=== PATIENT | male | born 1965 | race Two or more races ===

== ENCOUNTER 2018-03-09 09:33 | Emergency (ER) | payer MEDICARE, MEDICAID ==
[~2018-03-09] VITALS: Ht 185.4 cm; Wt 86.2 kg
[2018-03-09 13:42] LABS: Basophils # (auto) 0.1 uL; Basophils % (auto) 1.2 % (0.0-2.0); Eosinophils # (auto) 0.4 uL; Eosinophils % (auto) 4.6 % (0.0-7.0); Hematocrit 39.8 % (41.0-53.0); Hemoglobin 13.2 g/dL (13.5-17.5); Lymphocytes # (auto) 1.4 uL; Mean Corpuscular Hemoglobin 29.9 pg (28.0-32.0); Mean Corpuscular Hgb Conc. 33.2 g/dL (32.0-36.0); Mean Corpuscular Volume 90.1 fL (80.0-100.0); Monocytes # (auto) 0.4 uL; Neutrophils % (auto) 72.2 % (37.0-80.0); Nucleated Red Blood Cells % 0.1 %; Platelet Count (auto) 447 10^3/uL (140-450); Red Blood Cells 4.42 10^6/uL (4.5-5.90); White Blood Cell 8.4 10^3/uL (4.4-10.8)
[2018-03-09 13:54] LABS: INR 1.17 (0.9-1.15); Partial Thromboplastin Time 28.5 sec (23.78-33.04); Prothrombin Time 12.4 sec (9.27-12.13)
[2018-03-09 14:01] LABS: Albumin 2.2 g/dL (3.4-5.0); Calcium 8.6 mg/dL (8.5-10.1); Potassium 4.2 mmol/L (3.5-5.1)
[2018-03-09 14:10] LABS: BUN/Creatinine Ratio 13.6; Bilirubin, Total 0.4 mg/dL (0.2-1.0); Total Protein 7.8 g/dL (6.4-8.2)
[2018-03-09 18:16] VITALS: BP 134/99
== END 2018-03-09 18:40 | disposition home or self-care (01) ==
LOC: ER 09:45
DX: R07.89 Other chest pain (principal); E78.5 Hyperlipidemia, unspecified; I10 Essential (primary) hypertension; E11.22 Type 2 diabetes mellitus with diabetic chronic kidney disease; I12.9 Hypertensive chronic kidney disease with stage 1 through stage 4 chronic kidney disease, or unspecified chronic kidney disease; N18.9 Chronic kidney disease, unspecified; F17.210 Nicotine dependence, cigarettes, uncomplicated; Z86.73 Personal history of transient ischemic attack (TIA), and cerebral infarction without residual deficits; Z90.49 Acquired absence of other specified parts of digestive tract
CPT/HCPCS: 36415; 71045; 80053; 82962; 83605; 84484; 85025; 85610; 85730; 87040; 93005; 94761

== ENCOUNTER → 2018-10-03 | Outpatient (CLI) | payer MEDICARE, MEDICAID ==
[~2018-10-03] MED LIST: AMLO5TAB15; ATOR40TA52; CEPH-37 PO; METF500T5; PANT40T
[2018-10-03 10:51] LABS: Basophils # (auto) 0.1 uL; Basophils % (auto) 1.3 % (0.0-2.0); Eosinophils # (auto) 0.4 uL; Eosinophils % (auto) 4.3 % (0.0-7.0); Hematocrit 32.4 % (41.0-53.0); Hemoglobin 10.8 g/dL (13.5-17.5); Lymphocytes # (auto) 1.4 uL; Lymphocytes % (auto) 15.9 % (10.0-50.0); Mean Corpuscular Hemoglobin 30.3 pg (28.0-32.0); Mean Corpuscular Hgb Conc. 33.3 g/dL (32.0-36.0); Mean Corpuscular Volume 90.8 fL (80.0-100.0); Monocytes # (auto) 0.6 uL; Monocytes % (auto) 7.5 % (0.0-12.0); Neutrophils # (auto) 6.1 uL; Nucleated Red Blood Cells % 0.1 %; Platelet Count (auto) 406 10^3/uL (140-450); Red Blood Cells 3.57 10^6/uL (4.5-5.90); Red Cell Distribution Width 14.1 % (11.8-14.3); White Blood Cell 8.5 10^3/uL (4.4-10.8)
[2018-10-03 12:42] LABS: Calcium 8.6 mg/dL (8.5-10.1); Potassium 4.2 mmol/L (3.5-5.1)
[2018-10-03 12:52] LABS: BUN/Creatinine Ratio 11.7; Bilirubin, Total 0.1 mg/dL (0.2-1.0); Total Protein 6.5 g/dL (6.4-8.2)
== END | disposition home or self-care (01) ==
LOC: LAB 10:32
PROVIDERS: ATTEND Internal Medicine Nephrology
DX: E11.22 Type 2 diabetes mellitus with diabetic chronic kidney disease (principal); I12.9 Hypertensive chronic kidney disease with stage 1 through stage 4 chronic kidney disease, or unspecified chronic kidney disease; N18.9 Chronic kidney disease, unspecified
CPT/HCPCS: 36415; 80053; 80061; 85025

== ENCOUNTER 2018-10-08 13:42 | Inpatient (IN) | payer MEDICARE, MEDICAID ==
[~2018-10-08] VITALS: Ht 185.4 cm; Wt 77.5 kg
[~2018-10-08 13:42] MED LIST changes: -AMLO5TAB15; -ATOR40TA52; -METF500T5; -PANT40T
[2018-10-08 14:34] LABS: Basophils # (auto) 0.1 uL; Basophils % (auto) 1.1 % (0.0-2.0); Eosinophils # (auto) 0.5 uL; Eosinophils % (auto) 4.5 % (0.0-7.0); Hematocrit 33.6 % (41.0-53.0); Hemoglobin 10.8 g/dL (13.5-17.5); Lymphocytes # (auto) 1.8 uL; Lymphocytes % (auto) 14.5 % (10.0-50.0); Mean Corpuscular Hemoglobin 29.8 pg (28.0-32.0); Mean Corpuscular Hgb Conc. 32.2 g/dL (32.0-36.0); Mean Corpuscular Volume 92.4 fL (80.0-100.0); Monocytes # (auto) 0.7 uL; Monocytes % (auto) 5.6 % (0.0-12.0); Neutrophils # (auto) 9.2 uL; Neutrophils % (auto) 74.3 % (37.0-80.0); Platelet Count (auto) 451 10^3/uL (140-450); Red Blood Cells 3.64 10^6/uL (4.5-5.90); Red Cell Distribution Width 14.2 % (11.8-14.3); White Blood Cell 12.3 10^3/uL (4.4-10.8)
[2018-10-08 14:45] LABS: Alanine Aminotransferase 38 U/L (16-61); Albumin 1.9 g/dL (3.4-5.0); Anion Gap 8 (5-15); Aspartate Aminotransferase 24 U/L (15-37); BUN/Creatinine Ratio 12.9; Blood Urea Nitrogen 38 mg/dL (7-18); Calcium 8.1 mg/dL (8.5-10.1); Carbon Dioxide 24 mmol/L (21-32); Chloride 102 mmol/L (98-107); GFR African American 29 mL/min; GFR Non-African American 24 mL/min; Potassium 4.4 mmol/L (3.5-5.1); Sodium 134 mmol/L (136-145)
[2018-10-08 14:53] LABS: Alkaline Phosphatase 232 U/L (45-117); Bilirubin, Total 0.2 mg/dL (0.2-1.0); Total Protein 6.7 g/dL (6.4-8.2)
[2018-10-08 14:55] LABS: Glucose 491 mg/dL (74-106)
[2018-10-08] MEDS ORDERED: SODIUM CHLORIDE 0.9% 1,000 ML IV ONE (15:15)
[2018-10-08] MEDS ORDERED: InsuLIN REG 1unit/0.01ml Soln (100units/ml) IV ONE (15:15)
[2018-10-08] MEDS ORDERED: cefTRIAXone 1GM/50ML D5W 50 ML IV ONE (15:15)
[2018-10-08] MEDS ORDERED: HYDROcodone-ACET 5/325MG TAB PO PRN (16:00)
[2018-10-08] MEDS ORDERED: ACETAMINOPHEN 500 MG TAB PO PRN (16:00)
[2018-10-08] MEDS ORDERED: DEXTROSE (50%) 50ML SYRG IV PRN (16:00)
[2018-10-08] MEDS ORDERED: NITROGLYCERIN 0.4 MG SL TAB SL PRN (16:00)
[2018-10-08] MEDS ORDERED: MORPHINE SULF INJ 2 MG/ML SYRINGE 1ML IV PRN (16:00)
[2018-10-08] MEDS: SODIUM CHLORIDE 0.9% 1,000 ML IV SCH (16:24)
[2018-10-08] MEDS: InsuLIN REG 1unit/0.01ml Soln (100units/ml) SC SCH ×2 (16:24→22:20)
[2018-10-08] MEDS: ACCU-CHEK COMFORT CURVE STRIP VI SCH ×2 (16:24→22:20)
[2018-10-08] MEDS: MORPHINE SULF INJ 2 MG/ML SYRINGE 1ML IV PRN ×2 (16:54→21:08)
[2018-10-08] MEDS ORDERED: VANCOMYCIN PER PHARMACY 0 MG IV SCH (17:15)
--- NOTE | 2018-10-08 17:30 | NUR ---
Telemetry admit from WAY[facility] HARPER JR admitted to Telemetry unit. Patient oriented to Margarita Amador, primary RN, unit, room, bed, and unit policies regarding patient care and visiting hours discussed with patient and family. Patient now on continuous telemetry monitoring, tele box #39 and telemetry reading on arrival to unit is SR @ 83 bpm. Bed set to lowest position/locked, bedside rails up x2, call light within reach. Instructed the patient to call for assistance. Patient verbalized understanding. Will continue to monitor Q1hr and PRN.
[2018-10-08 17:47] LABS: Urine Bacteria NONE SEEN /hpf (None Seen); Urine Blood 1+ /uL (Negative); Urine Hyaline Cast FEW /lpf (0 - 2); Urine Specific Gravity 1.014 (1.001-1.035); Urine WBC 3 /hpf (0 - 3)
[2018-10-08] MEDS ORDERED: PIPERACILLIN-TAZOB 3.375GM 100 ML IV SCH (18:00)
[2018-10-08] MEDS ORDERED: VANCOMYCIN 1GM/250ML 250 ML IV ONE (18:00)
[2018-10-08 18:03] LABS: Alcohol, Urine < 3.0 mg/dL (0-5); Amphetamine Screen, Urine POSITIVE (NEGATIVE); Barbiturate Scree,Urine NEGATIVE (NEGATIVE); Benzodiazephine Screen, Urine NEGATIVE (NEGATIVE); Cannabinoid Screen, Urine POSITIVE (NEGATIVE); Cocaine Screen, Urine NEGATIVE (NEGATIVE); Opiate Scree,Urine NEGATIVE (NEGATIVE); Phencyclidine Screen, Urine NEGATIVE (NEGATIVE)
[2018-10-08] MEDS ORDERED: ATOR40TA52 (18:59)
[2018-10-08] MEDS ORDERED: METF500T5 (18:59)
[2018-10-08] MEDS ORDERED: PANT40T (18:59)
[2018-10-08] MEDS ORDERED: AMLO5TAB15 (18:59)
--- NOTE | 2018-10-08 19:02 | NUR ---
ENDORSED CARE TO FRAN NORTON. ENDORSED MRSA SWAB.
--- NOTE | 2018-10-08 20:17 | NUR ---
REPORT RECEIVED FROM DAY RN POC REVIEWED
--- NOTE | 2018-10-08 21:03 | NUR ---
MRSA SWAB SENT PT HAD POSITIVE MRSA LAST MONTH 08/2018, PT PLACED ON CONTACT ISOLATION
[2018-10-08 21:16] VITALS: BP 159/97
[2018-10-09] MEDS: SODIUM CHLORIDE 0.9% 1,000 ML IV SCH ×3 (00:52→17:27)
[2018-10-09] MEDS: InsuLIN REG 1unit/0.01ml Soln (100units/ml) SC SCH ×6 (00:53→20:50)
[2018-10-09] MEDS: ACCU-CHEK COMFORT CURVE STRIP VI SCH ×6 (00:54→20:51)
[2018-10-09] MEDS: MORPHINE SULF INJ 2 MG/ML SYRINGE 1ML IV PRN ×5 (01:14→22:00)
[2018-10-09 05:30] VITALS: BP 149/86
[2018-10-09 05:58] LABS: Basophils # (auto) 0.1 uL; Basophils % (auto) 0.7 % (0.0-2.0); Eosinophils # (auto) 0.8 uL; Eosinophils % (auto) 6.7 % (0.0-7.0); Hematocrit 32.6 % (41.0-53.0); Lymphocytes # (auto) 3.4 uL; Mean Corpuscular Hemoglobin 30.4 pg (28.0-32.0); Mean Corpuscular Hgb Conc. 33.6 g/dL (32.0-36.0); Mean Corpuscular Volume 90.6 fL (80.0-100.0); Monocytes # (auto) 1.1 uL; Monocytes % (auto) 9.1 % (0.0-12.0); Neutrophils # (auto) 6.7 uL; Neutrophils % (auto) 55.5 % (37.0-80.0); Platelet Count (auto) 379 10^3/uL (140-450); Red Cell Distribution Width 14.2 % (11.8-14.3); White Blood Cell 12.1 10^3/uL (4.4-10.8)
[2018-10-09 06:05] LABS: INR 1.27 (0.9-1.15); Partial Thromboplastin Time 29.6 sec (23.64-32.05)
[2018-10-09] MEDS: INSULIN LANTUS (GLARGINE) 1 /0.01ml (100units/ml) SC SCH (06:07)
[2018-10-09 06:12] LABS: Calcium 8.2 mg/dL (8.5-10.1); Potassium 3.8 mmol/L (3.5-5.1)
[2018-10-09 06:16] LABS: BUN/Creatinine Ratio 15.4
--- NOTE | 2018-10-09 07:23 | NUR ---
patient endorsed from pm shift. patient admitted 10/08 for sepsis. patient has apparent facial swelling with sore on cheek
[2018-10-09 08:00] VITALS: BP 112/72
[2018-10-09] MEDS: cefTRIAXone 1GM/50ML D5W 50 ML IV SCH (08:21)
[2018-10-09 09:00] VITALS: BP 153/88
[2018-10-09 13:00] VITALS: BP 127/73
--- NOTE | 2018-10-09 13:18 | NUR ---
Pt requested advance directive which was given to him. Social work explained how to fill out. Pt had no questions.
--- NOTE | 2018-10-09 14:15 | NUR ---
WOUND CARE NOTE: Wound care consult received for upper extremity cellulitis. Patient is a 53 yo males admitted for sepsis. Patient with a history of L BKA, chronic kidney failure, diabetes, high lipids, hypertension, TIA, appy and tonsillectomy. Patient is alert and denies pain. Last Devin score is 19. Patient presents with multiple multiple pustules over surface of right arm and right cheek. Patient states that this is the first sore that he has had on his face. Patient has frequently develop the sores on his arms where he picks at them and drains them. Patient currently with no open draining wound. All sores are closed and/or scabbed over. RECOMMENDATIONS: Nursing to provide basic skin care, cleanse and moisturize skin PRN; continue with antibiotics as order; no need for wound care team at this time.
[2018-10-09 17:00] VITALS: BP 134/78
[2018-10-09] MEDS: VANCOMYCIN 750mg/250ml 250 ML IV SCH (17:38)
[2018-10-09] MEDS ORDERED: VANCOMYCIN 750mg/250ml 250 ML IV SCH (18:00)
--- NOTE | 2018-10-09 18:53 | NUR ---
PATIENT SEEN BY WOUND CARE. NO TREATMENT TO BE RECEIVED UNLESS SORES BECOME OPEN SORES
--- NOTE | 2018-10-09 19:30 | NUR ---
Opening Shift Note Assumed care of patient, awake and alert. No S/S of distress/SOB or pain. IV to left FA infiltrated. Arm tender and inflammed. Discontinuing IV and will start a new one. Scabs on arm and face are not open. Instructed on POC and to call for assist PRN, will continue to monitor for changes Q1hr and PRN.
[2018-10-09 21:00] VITALS: BP 136/80
--- NOTE | 2018-10-09 21:05 | NUR ---
Opening Shift Note Assumed care of patient, awake and alert. No S/S of distress/SOB or pain. Instructed on POC and to call for assist PRN, will continue to monitor for changes Q1hr and PRN. Addendum: 10/11/18 at 0338 by KRISTEL MAE RN RN Actual 10/10/18
--- NOTE | 2018-10-09 22:00 | NUR ---
New IV 22 G started to left upper FA. Infusing fluids per orders. Tolerated well. Requesting pain meds. Will medicate per orders
[2018-10-10] MEDS: ACCU-CHEK COMFORT CURVE STRIP VI SCH ×6 (04:00→20:20)
[2018-10-10 04:30] VITALS: BP 133/81
[2018-10-10] MEDS: InsuLIN REG 1unit/0.01ml Soln (100units/ml) SC SCH ×6 (04:31→20:21)
[2018-10-10] MEDS: INSULIN LANTUS (GLARGINE) 1 /0.01ml (100units/ml) SC SCH (06:14)
[2018-10-10] MEDS: MORPHINE SULF INJ 2 MG/ML SYRINGE 1ML IV PRN ×4 (06:16→20:23)
[2018-10-10] MEDS: SODIUM CHLORIDE 0.9% 1,000 ML IV SCH ×3 (08:47→15:49)
[2018-10-10] MEDS: cefTRIAXone 1GM/50ML D5W 50 ML IV SCH (08:47)
[2018-10-10 09:27] VITALS: BP 118/85
[2018-10-10] MEDS: MUPIROCIN 2% OINT 15gm or 22gm EACHNOSTRI SCH ×2 (10:10→22:58)
[2018-10-10 12:30] VITALS: BP 150/83
[2018-10-10 17:10] VITALS: BP 143/78
[2018-10-10] MEDS: VANCOMYCIN 750mg/250ml 250 ML IV SCH (17:30)
[2018-10-10 23:24] VITALS: BP 125/68
[2018-10-11] MEDS: MORPHINE SULF INJ 2 MG/ML SYRINGE 1ML IV PRN ×3 (00:32→09:27)
[2018-10-11] MEDS: ACCU-CHEK COMFORT CURVE STRIP VI SCH ×3 (00:40→08:00)
[2018-10-11] MEDS: SODIUM CHLORIDE 0.9% 1,000 ML IV SCH ×2 (00:41→08:00)
[2018-10-11] MEDS: InsuLIN REG 1unit/0.01ml Soln (100units/ml) SC SCH ×3 (00:41→08:00)
[2018-10-11 05:29] LABS: Basophils # (auto) 0.1 uL; Basophils % (auto) 0.5 % (0.0-2.0); Eosinophils % (auto) 8.7 % (0.0-7.0); Hemoglobin 9.5 g/dL (13.5-17.5); Lymphocytes # (auto) 2.7 uL; Lymphocytes % (auto) 23.6 % (10.0-50.0); Mean Corpuscular Hgb Conc. 32.5 g/dL (32.0-36.0); Mean Corpuscular Volume 92.1 fL (80.0-100.0); Monocytes # (auto) 1.1 uL; Monocytes % (auto) 9.8 % (0.0-12.0); Neutrophils # (auto) 6.6 uL; Neutrophils % (auto) 57.4 % (37.0-80.0); Nucleated Red Blood Cells % 0.1 %; Platelet Count (auto) 379 10^3/uL (140-450); Red Blood Cells 3.16 10^6/uL (4.5-5.90); Red Cell Distribution Width 14.2 % (11.8-14.3); White Blood Cell 11.5 10^3/uL (4.4-10.8)
[2018-10-11 05:31] VITALS: BP 133/80
[2018-10-11] MEDS: INSULIN LANTUS (GLARGINE) 1 /0.01ml (100units/ml) SC SCH (06:21)
[2018-10-11 09:00] VITALS: BP 139/75
[2018-10-11] MEDS: cefTRIAXone 1GM/50ML D5W 50 ML IV SCH (09:03)
[2018-10-11] MEDS: MUPIROCIN 2% OINT 15gm or 22gm EACHNOSTRI SCH (09:40)
--- NOTE | 2018-10-11 10:23 | NUR ---
Discharge instructions given as ordered. Encourage to follow up with PMD as instructed. All questions and concerns addressed. Patient verbalized understanding. Medication reconciliation form completed and copy given to patient. IV removed with catheter intact, pressure dressing applied . Telemetry unit returned to ICU. Patient taken to vehicle via wheelchair with all personal belongings, accompanied by staff and family member. No distress noted at time of departure.
== END 2018-10-11 10:22 | disposition home or self-care (01) | DRG 871 ==
LOC: ER 13:42 → TELE 13:43 → TELE-CENTR 17:29
PROVIDERS: ADMIT Nurse Practitioner Acute Care; ATTEND Family Medicine
DX: A41.9 Sepsis, unspecified organism (principal); E43 Unspecified severe protein-calorie malnutrition; L03.113 Cellulitis of right upper limb; L03.211 Cellulitis of face; L02.01 Cutaneous abscess of face; N18.4 Chronic kidney disease, stage 4 (severe); E11.22 Type 2 diabetes mellitus with diabetic chronic kidney disease; E11.21 Type 2 diabetes mellitus with diabetic nephropathy; E11.40 Type 2 diabetes mellitus with diabetic neuropathy, unspecified; D63.8 Anemia in other chronic diseases classified elsewhere; I12.9 Hypertensive chronic kidney disease with stage 1 through stage 4 chronic kidney disease, or unspecified chronic kidney disease; E78.00 Pure hypercholesterolemia, unspecified; F15.10 Other stimulant abuse, uncomplicated; Z68.22 Body mass index [BMI] 22.0-22.9, adult; F17.210 Nicotine dependence, cigarettes, uncomplicated; Z79.4 Long term (current) use of insulin; Z82.3 Family history of stroke; Z82.49 Family history of ischemic heart disease and other diseases of the circulatory system; Z83.3 Family history of diabetes mellitus; Z86.73 Personal history of transient ischemic attack (TIA), and cerebral infarction without residual deficits; Z89.512 Acquired absence of left leg below knee; Z89.612 Acquired absence of left leg above knee; Z90.81 Acquired absence of spleen
CPT/HCPCS: 36415; 71045; 80048; 80053; 80202; 80307; 81001; 82565; 82962; 83036; 83605; 83880; 84484; 85025; 85610; 85730; 87040; 87081; 93005; G0378; J0696; J1815

== ENCOUNTER 2018-11-09 20:36 | Inpatient (IN) | payer MEDICARE, MEDICAID ==
[~2018-11-09] VITALS: Ht 185.4 cm; Wt 85.7 kg
[~2018-11-09 20:36] MED LIST changes: +AMLO5TAB15; +ATOR40TA52; +METF-916; +PANT40T
[2018-11-09 22:16] LABS: Urine Bacteria FEW /hpf (None Seen); Urine Blood 1+ /uL (Negative); Urine Mucus FEW (None Seen); Urine Specific Gravity 1.015 (1.001-1.035); Urine WBC 3 /hpf (0 - 3)
[2018-11-10 02:11] LABS: Basophils # (auto) 0.1 uL; Basophils % (auto) 0.9 % (0.0-2.0); Eosinophils # (auto) 0.4 uL; Hemoglobin 11.8 g/dL (13.5-17.5); Lymphocytes # (auto) 2.8 uL; Lymphocytes % (auto) 25.6 % (10.0-50.0); Mean Corpuscular Hemoglobin 29.7 pg (28.0-32.0); Mean Corpuscular Hgb Conc. 32.8 g/dL (32.0-36.0); Mean Corpuscular Volume 90.4 fL (80.0-100.0); Monocytes # (auto) 0.9 uL; Monocytes % (auto) 7.8 % (0.0-12.0); Neutrophils # (auto) 6.8 uL; Neutrophils % (auto) 61.7 % (37.0-80.0); Nucleated Red Blood Cells % 0.2 %; Platelet Count (auto) 362 10^3/uL (140-450); Red Blood Cells 3.98 10^6/uL (4.5-5.90); Red Cell Distribution Width 14.2 % (11.8-14.3)
[2018-11-10 02:24] LABS: INR 1.21 (0.9-1.15); Partial Thromboplastin Time 28.3 sec (23.64-32.05)
[2018-11-10 02:29] LABS: Alanine Aminotransferase 30 U/L (16-61); Albumin 2.3 g/dL (3.4-5.0); Anion Gap 11 (5-15); Aspartate Aminotransferase 13 U/L (15-37); BUN/Creatinine Ratio 19.1; Blood Urea Nitrogen 59 mg/dL (7-18); Calcium 8.3 mg/dL (8.5-10.1); Carbon Dioxide 19 mmol/L (21-32); Chloride 107 mmol/L (98-107); GFR African American 27 mL/min; GFR Non-African American 23 mL/min; Glucose 257 mg/dL (74-106); Magnesium 2.1 mg/dL (1.6-2.6); Potassium 4.3 mmol/L (3.5-5.1); Sodium 137 mmol/L (136-145)
[2018-11-10 02:33] LABS: Alkaline Phosphatase 162 U/L (45-117); Bilirubin, Total < 0.1 mg/dL (0.2-1.0); Total Protein 6.8 g/dL (6.4-8.2)
[2018-11-10] MEDS ORDERED: ONDANSETRON HCL 4 MG/2 ML VIAL IV ONE (07:30)
[2018-11-10] MEDS ORDERED: ASPirin 81 mg TAB PO ONE (07:30)
[2018-11-10] MEDS ORDERED: MORPHINE SULF INJ 2 MG/ML SYRINGE 1ML IV ONE (07:30)
[2018-11-10] MEDS: SODIUM CHLORIDE 0.9% 1,000 ML IV ONE ×2 (09:58→10:06)
[2018-11-10] MEDS ORDERED: MORPHINE SULF INJ 2 MG/ML SYRINGE 1ML IV PRN (10:45)
[2018-11-10] MEDS ORDERED: DEXTROSE (50%) 50ML SYRG IV PRN (10:45)
[2018-11-10] MEDS ORDERED: NITROGLYCERIN 0.4 MG SL TAB SL PRN (10:45)
[2018-11-10] MEDS ORDERED: METOPROLOL TARTRATE 25 MG TAB PO ONE (11:00)
[2018-11-10] MEDS ORDERED: ASPirin-EC 81 mg tab PO ONE (11:00)
[2018-11-10] MEDS ORDERED: cefTRIAXone 1GM/50ML D5W 50 ML IV ONE (11:00)
[2018-11-10] MEDS: ACCU-CHEK COMFORT CURVE STRIP VI SCH ×3 (11:56→20:59)
[2018-11-10] MEDS: InsuLIN REG 1unit/0.01ml Soln (100units/ml) SC SCH ×3 (11:59→21:01)
[2018-11-10] MEDS: CLINDAMYCIN 300MG IV 50 ML IV SCH ×2 (14:04→20:36)
--- NOTE | 2018-11-10 14:20 | NUR ---
Telemetry admit from [facility] admitted to Telemetry unit after SBAR received. Patient oriented to Nikky Becker primary RN, unit, room, bed, and unit policies regarding patient care and visiting hours. Patient now on continuous telemetry monitoring, tele box # 75 and telemetry reading on arrival to unit is SR 60's. Patient placed on bedside oxygen, weighed by bed scale and encouraged to call if they need something. All questions and concerns addressed, patient verbalized understanding. Instructed patient on POC, fall precautions and to call for assistance as needed. Patient verbalized understanding. Fall precautions in place with bed in lowest locked position with x2 side rails up and call light within reach. Patient's personal wheelchair at bedside. Respirations even and unlabored, no distress noted.
[2018-11-10 15:13] VITALS: BP 141/78
[2018-11-10] MEDS ORDERED: AMLO5TAB15 PO (16:42)
[2018-11-10] MEDS ORDERED: ATOR40TA52 PO (16:42)
[2018-11-10] MEDS ORDERED: METF-771 PO (16:42)
[2018-11-10] MEDS ORDERED: CLIN150C PO (16:42)
[2018-11-10 17:00] VITALS: BP 136/75
--- NOTE | 2018-11-10 17:25 | NUR ---
MRSA swab collected and sent to lab per MD order.
--- NOTE | 2018-11-10 18:43 | NUR ---
Closing note patient resting in bed with even and unlabored respirations, no distress noted. Fall precautions in place with bed in lowest locked position, call light within reach. Patient's personal wheelchair at bedside.
--- NOTE | 2018-11-10 19:26 | NUR ---
Care endorsed to FRAN Fu.
--- NOTE | 2018-11-10 19:30 | NUR ---
Opening Shift Note Assumed care of patient, awake and alert. No S/S of distress/SOB or pain. Instructed on POC and to call for assist PRN, will continue to monitor for changes Q1hr and PRN.
[2018-11-10 20:00] VITALS: BP 127/88
[2018-11-10] MEDS: MORPHINE SULFATE 4 MG/ML SYR/VIAL IV PRN (20:35)
[2018-11-10] MEDS: ATORVASTATIN 20 MG TAB PO SCH (20:36)
[2018-11-10 21:56] VITALS: BP 127/88
[2018-11-10] MEDS: METOPROLOL TARTRATE 25 MG TAB PO SCH (22:00)
--- NOTE | 2018-11-11 01:53 | NUR ---
wound care photos taken to patient right lower toe. per patient" I am worried because before my amputation i had an ulcer on my foot."
[2018-11-11] MEDS: MORPHINE SULFATE 4 MG/ML SYR/VIAL IV PRN ×4 (03:15→22:04)
[2018-11-11 05:00] VITALS: BP 117/65
[2018-11-11] MEDS: CLINDAMYCIN 300MG IV 50 ML IV SCH ×3 (05:49→22:02)
[2018-11-11 06:27] LABS: Basophils # (auto) 0.1 uL; Basophils % (auto) 0.7 % (0.0-2.0); Eosinophils # (auto) 0.6 uL; Eosinophils % (auto) 5.2 % (0.0-7.0); Hematocrit 32.3 % (41.0-53.0); Hemoglobin 10.9 g/dL (13.5-17.5); Lymphocytes # (auto) 2.9 uL; Lymphocytes % (auto) 26.8 % (10.0-50.0); Mean Corpuscular Hemoglobin 30.2 pg (28.0-32.0); Monocytes # (auto) 0.8 uL; Monocytes % (auto) 7.4 % (0.0-12.0); Neutrophils # (auto) 6.6 uL; Neutrophils % (auto) 59.9 % (37.0-80.0); Platelet Count (auto) 350 10^3/uL (140-450); Red Blood Cells 3.63 10^6/uL (4.5-5.90); Red Cell Distribution Width 14.1 % (11.8-14.3)
[2018-11-11 06:54] LABS: Calcium 8.3 mg/dL (8.5-10.1); Potassium 4.9 mmol/L (3.5-5.1)
[2018-11-11] MEDS: InsuLIN REG 1unit/0.01ml Soln (100units/ml) SC SCH ×4 (07:00→22:17)
[2018-11-11] MEDS: ACCU-CHEK COMFORT CURVE STRIP VI SCH ×4 (07:00→22:19)
[2018-11-11 07:30] VITALS: BP 117/73
--- NOTE | 2018-11-11 07:30 | NUR ---
REPORT GIVEN TO KAVON PETERS
--- NOTE | 2018-11-11 07:30 | NUR ---
Opening Shift Note Assumed care of patient, awake, alert and oriented. No S/S of distress/SOB or pain. Bed in low/locked position, bed rails up x2. Instructed on POC and to call for assist PRN with call light within reach. All questions/concerns answered. Will continue to monitor for changes Q1hr and PRN.
[2018-11-11] MEDS: cefTRIAXone 1GM/50ML D5W 50 ML IV SCH (09:02)
[2018-11-11] MEDS: ASPirin-EC 81 mg tab PO SCH (09:03)
[2018-11-11] MEDS: METOPROLOL TARTRATE 25 MG TAB PO SCH ×2 (09:04→22:03)
[2018-11-11 09:56] VITALS: BP 117/73
[2018-11-11] MEDS ORDERED: VANCOMYCIN PER PHARMACY 0 MG IV SCH (11:15)
[2018-11-11] MEDS: INSULIN LANTUS (GLARGINE) 1 /0.01ml (100units/ml) SC SCH ×2 (11:52→22:18)
[2018-11-11] MEDS: MUPIROCIN 2% OINT 15gm or 22gm TOP SCH ×2 (12:00→22:00)
[2018-11-11 13:28] VITALS: BP 122/71
--- NOTE | 2018-11-11 13:50 | NUR ---
WOUND CARE NOTE: Wound care consult received from nursing. Patient is a 53 yo male admitted for cellulitis to face and right upper extremity. Patient with a history of diabetes, hypertension, chronic kidney disease, CVA, hyperlipidemia, aortic valve stenosis, COPD and left BKA. Patient is alert and denies pain. Last Devin score is 18. Patient with a diabetic ulcer/callous to right great toe. Wound measures 1x1cm and has a thick callous ring ~0.5cm. No drainage noted. Wound bed covered with serous crust. Facial cellulitis is resolving and right upper extremity with scabs in place. RECOMMENDATIONS: Nursing to cleanse right foot ulcer with NS, pat dry, pain with betadine, cover with OPTIFOAM GENTLE, change every three days and PRN; no further need from wound care team. Addendum: 11/11/18 at 1658 by ORA KAN RN Amended: Links added.
[2018-11-11] MEDS: VANCOMYCIN 1GM/250ML 250 ML IV SCH (14:28)
[2018-11-11] MEDS: MUPIROCIN 2% OINT 15gm or 22gm EACHNOSTRI SCH ×3 (14:28→22:02)
--- NOTE | 2018-11-11 14:59 | NUR ---
NUTRITION CONSULT/ASSESSMENT NOTES Please refer to link notes of nutrition screen form filed under the intervention section of the plan of care for further details. Est. Needs: 1950 kcal to 2350 kcal (25-30 kcal/kgBW), 62 gms to 78 gms pro (0.8-1.0 gm/kgBW). Will continue to monitor pertinent labs and reassess nutrient need prn Thank you for this consult. Addendum: 11/11/18 at [address] Amended: Links added.
--- NOTE | 2018-11-11 19:20 | NUR ---
assumed care, pt. awake, no c/o pain, advised pt. npo after mn, for lhc in am, no sob.
[2018-11-11 22:00] VITALS: BP 123/72
[2018-11-11] MEDS: SODIUM BICARBONATE 650 MG TAB PO SCH (22:03)
[2018-11-11] MEDS: ATORVASTATIN 20 MG TAB PO SCH (22:03)
[2018-11-12] MEDS: MORPHINE SULFATE 4 MG/ML SYR/VIAL IV PRN ×4 (04:07→22:34)
[2018-11-12] MEDS: SODIUM BICARBONATE 650 MG TAB PO SCH (05:31)
[2018-11-12] MEDS: CLINDAMYCIN 300MG IV 50 ML IV SCH (05:31)
[2018-11-12 05:51] VITALS: BP 123/74
[2018-11-12] MEDS: InsuLIN REG 1unit/0.01ml Soln (100units/ml) SC SCH ×4 (06:01→21:27)
[2018-11-12] MEDS: ACCU-CHEK COMFORT CURVE STRIP VI SCH ×4 (06:02→21:29)
[2018-11-12 06:48] LABS: Basophils # (auto) 0.1 uL; Basophils % (auto) 0.8 % (0.0-2.0); Eosinophils # (auto) 0.6 uL; Eosinophils % (auto) 5.7 % (0.0-7.0); Hematocrit 28.9 % (41.0-53.0); Hemoglobin 10.1 g/dL (13.5-17.5); Lymphocytes # (auto) 2.6 uL; Lymphocytes % (auto) 25.1 % (10.0-50.0); Mean Corpuscular Hemoglobin 31.1 pg (28.0-32.0); Mean Corpuscular Hgb Conc. 34.9 g/dL (32.0-36.0); Mean Corpuscular Volume 89.2 fL (80.0-100.0); Monocytes # (auto) 1.1 uL; Monocytes % (auto) 10.4 % (0.0-12.0); Neutrophils # (auto) 6.1 uL; Nucleated Red Blood Cells % 0.1 %; Platelet Count (auto) 310 10^3/uL (140-450); Red Blood Cells 3.24 10^6/uL (4.5-5.90); Red Cell Distribution Width 14.3 % (11.8-14.3); White Blood Cell 10.5 10^3/uL (4.4-10.8)
[2018-11-12] MEDS: VANCOMYCIN 1GM/250ML 250 ML IV SCH (06:48)
[2018-11-12 06:55] LABS: INR 1.37 (0.9-1.15); Partial Thromboplastin Time 28.8 sec (23.64-32.05)
[2018-11-12 06:59] LABS: Potassium 4.9 mmol/L (3.5-5.1)
[2018-11-12 07:06] LABS: BUN/Creatinine Ratio 19.1
--- NOTE | 2018-11-12 07:30 | NUR ---
Opening Shift Note Assumed care of patient, awake, alert and oriented. No S/S of distress/SOB or pain. Bed in low/locked position, bed rails up x2. Instructed on POC and to call for assist PRN. All questions/concerns answered. Will continue to monitor for changes Q1hr and PRN.
[2018-11-12 09:00] VITALS: BP 120/72
[2018-11-12] MEDS: INSULIN LANTUS (GLARGINE) 1 /0.01ml (100units/ml) SC SCH ×2 (10:00→21:28)
[2018-11-12] MEDS: MUPIROCIN 2% OINT 15gm or 22gm TOP SCH ×2 (10:00→21:29)
[2018-11-12] MEDS: ASPirin-EC 81 mg tab PO SCH (10:10)
[2018-11-12] MEDS: cefTRIAXone 1GM/50ML D5W 50 ML IV SCH (10:11)
[2018-11-12] MEDS: METOPROLOL TARTRATE 25 MG TAB PO SCH ×2 (10:12→21:26)
[2018-11-12] MEDS: MUPIROCIN 2% OINT 15gm or 22gm EACHNOSTRI SCH ×2 (10:12→21:25)
--- NOTE | 2018-11-12 10:20 | NUR ---
MD ROUNDS DR EPSTEIN AT BEDSIDE DISCUSSING POC WITH PATIENT. ALL QUESTIONS/CONCERNS ANSWERED. WILL CONTINUE TO MONITOR
--- NOTE | 2018-11-12 10:40 | NUR ---
MD ROUNDS DR PEREZ AT BEDSIDE DISCUSSING POC WITH PATIENT. ALL QUESTIONS/CONCERNS ANSWERED. NEW ORDERS GIVEN/ RECEIVED. WILL CONTINUE TO MONITOR
--- NOTE | 2018-11-12 11:45 | NUR ---
OFF UNIT PATIENT DOWN IN SOFTWARE INTEGRATION DEVELOPER
[2018-11-12] MEDS: SODIUM BICARBONATE 50ML VIAL 50 ML in SOD CHL 0.45% 1,000 ML IV SCH ×3 (12:05→23:18)
[2018-11-12] MEDS ORDERED: ANGIOMAX 250 MG VIAL IV ONE (13:11)
[2018-11-12] MEDS ORDERED: MIDAZOLAM HCL 1MG/1ML-2 ML VIAL ONE (13:12)
[2018-11-12] MEDS ORDERED: fentaNYL CITRATE 100 MCG/2 ML VL ONE (13:12)
[2018-11-12] MEDS ORDERED: SODIUM CHL 0.9% 0 ML ONE (13:12)
[2018-11-12] MEDS ORDERED: LIDOCAINE 2%HCL (LOCAL ANESTH.) INJ 20ML MDV ONE (13:12)
[2018-11-12] MEDS ORDERED: IODIXANOL 320MG/ML 100ML BTL IV ONE (13:34)
[2018-11-12] MEDS ORDERED: HEPARIN SODIUM (PORCINE) 5000 UNITS/ML 1ML VIAL ONE (13:57)
--- NOTE | 2018-11-12 14:40 | NUR ---
[facility] CALLED RE: PATIENT'S MRSA SWAB, PATIENT POSITIVE FOR MRSA
--- NOTE | 2018-11-12 15:10 | NUR ---
ON UNIT PATIENT ON UNIT FROM RN PACU. DRESSING TO RIGHT GROIN C/D/I. PATIENT INSTRUCTED TO LAY FLAT UNTIL 1630. WILL CONTINUE TO MONITOR
[2018-11-12 15:56] LABS: Alcohol, Urine < 3.0 mg/dL (0-5); Amphetamine Screen, Urine NEGATIVE (NEGATIVE); Barbiturate Scree,Urine NEGATIVE (NEGATIVE); Benzodiazephine Screen, Urine NEGATIVE (NEGATIVE); Cannabinoid Screen, Urine NEGATIVE (NEGATIVE); Cocaine Screen, Urine NEGATIVE (NEGATIVE); Opiate Scree,Urine NEGATIVE (NEGATIVE); Phencyclidine Screen, Urine NEGATIVE (NEGATIVE)
[2018-11-12 15:57] LABS: Protein, Urine 286.7 mg/dL (0.0-11.9)
[2018-11-12 17:00] VITALS: BP 120/92
--- NOTE | 2018-11-12 19:20 | NUR ---
assumed care, pt. awake, dressing on rt. groin and rt. foot dry and intact, no c/o pain, not in distress.
[2018-11-12] MEDS: traMADol HCL 50 MG TAB PO PRN (20:56)
[2018-11-12] MEDS: ATORVASTATIN 20 MG TAB PO SCH (21:25)
[2018-11-12] MEDS: DAKINS HALF STR 0.25% (NaHypochlorite) 473 ML TOPICAL SOL TOP SCH (21:28)
[2018-11-12 22:00] VITALS: BP 152/86
[2018-11-13] MEDS: MORPHINE SULFATE 4 MG/ML SYR/VIAL IV PRN ×4 (04:26→23:05)
[2018-11-13 05:00] VITALS: BP 122/71
[2018-11-13] MEDS: InsuLIN REG 1unit/0.01ml Soln (100units/ml) SC SCH ×4 (06:08→23:08)
[2018-11-13] MEDS: ACCU-CHEK COMFORT CURVE STRIP VI SCH ×4 (06:08→23:09)
[2018-11-13 09:00] VITALS: BP 120/70
[2018-11-13] MEDS: MUPIROCIN 2% OINT 15gm or 22gm TOP SCH ×2 (10:00→22:00)
[2018-11-13] MEDS: cefTRIAXone 1GM/50ML D5W 50 ML IV SCH (10:40)
[2018-11-13] MEDS: ASPirin-EC 81 mg tab PO SCH (10:40)
[2018-11-13] MEDS: MUPIROCIN 2% OINT 15gm or 22gm EACHNOSTRI SCH ×2 (10:40→23:05)
[2018-11-13 10:41] LABS: Basophils # (auto) 0.1 uL; Basophils % (auto) 1.1 % (0.0-2.0); Eosinophils # (auto) 0.8 uL; Eosinophils % (auto) 7.1 % (0.0-7.0); Hematocrit 28.7 % (41.0-53.0); Hemoglobin 9.6 g/dL (13.5-17.5); Lymphocytes # (auto) 2.4 uL; Lymphocytes % (auto) 21.8 % (10.0-50.0); Mean Corpuscular Hemoglobin 30.5 pg (28.0-32.0); Mean Corpuscular Hgb Conc. 33.3 g/dL (32.0-36.0); Mean Corpuscular Volume 91.7 fL (80.0-100.0); Monocytes # (auto) 1.2 uL; Monocytes % (auto) 10.6 % (0.0-12.0); Neutrophils # (auto) 6.6 uL; Neutrophils % (auto) 59.4 % (37.0-80.0); Nucleated Red Blood Cells % 0.1 %; Platelet Count (auto) 279 10^3/uL (140-450); Red Blood Cells 3.13 10^6/uL (4.5-5.90); Red Cell Distribution Width 14.3 % (11.8-14.3); White Blood Cell 11.1 10^3/uL (4.4-10.8)
[2018-11-13] MEDS: INSULIN LANTUS (GLARGINE) 1 /0.01ml (100units/ml) SC SCH ×2 (10:41→23:08)
[2018-11-13] MEDS: METOPROLOL TARTRATE 25 MG TAB PO SCH ×2 (10:41→23:06)
[2018-11-13] MEDS: SODIUM BICARBONATE 50ML VIAL 50 ML in SOD CHL 0.45% 1,000 ML IV SCH (10:42)
[2018-11-13] MEDS: DAKINS HALF STR 0.25% (NaHypochlorite) 473 ML TOPICAL SOL TOP SCH ×2 (10:42→23:09)
[2018-11-13 10:59] LABS: Calcium 7.7 mg/dL (8.5-10.1); Potassium 4.9 mmol/L (3.5-5.1)
--- NOTE | 2018-11-13 11:00 | NUR ---
WOUND CARE DRESSING CHANGE PER MD ORDERS. PATIENT TOLERATED WELL. WILL CONTINUE TO MONITOR
--- NOTE | 2018-11-13 11:40 | NUR ---
MD ROUNDS DR EPSTEIN AT BEDSIDE DISCUSSING POC WITH PATIENT. ALL QUESTIONS/CONCERNS ANSWERED. NEW ORDERS RECEIVED/CARRIED OUT. WILL CONTINUE TO MONITOR
[2018-11-13 13:00] VITALS: BP 147/70
[2018-11-13] MEDS: traMADol HCL 50 MG TAB PO PRN ×2 (15:24→22:00)
[2018-11-13 17:00] VITALS: BP 139/77
[2018-11-13] MEDS ORDERED: VANCOMYCIN 1GM/250ML 250 ML IV SCH (18:00)
--- NOTE | 2018-11-13 19:50 | NUR ---
Opening Shift Note Pt is resting in bed with eyes open and resp rate is even and unlabored. No s/s of any distress noted at this time. POC discussed with pt and pt verbalizes understanding. Pt has w/c at bedside and transfers per himself with no difficulties. Bed is low, wheels are locked, and call light is with in reach.
[2018-11-13 22:00] VITALS: BP 122/70
[2018-11-13] MEDS: ATORVASTATIN 20 MG TAB PO SCH (23:05)
[2018-11-13] MEDS: HEPARIN SODIUM (PORCINE) 5000 UNITS/ML 1ML VIAL SC SCH (23:07)
[2018-11-14] MEDS: SODIUM BICARBONATE 50ML VIAL 50 ML in SOD CHL 0.45% 1,000 ML IV SCH ×2 (03:47→04:45)
[2018-11-14] MEDS: traMADol HCL 50 MG TAB PO PRN ×2 (03:48→09:38)
[2018-11-14 05:00] VITALS: BP 112/71
[2018-11-14] MEDS: MORPHINE SULFATE 4 MG/ML SYR/VIAL IV PRN ×2 (05:39→11:02)
[2018-11-14] MEDS: InsuLIN REG 1unit/0.01ml Soln (100units/ml) SC SCH ×2 (06:19→12:37)
[2018-11-14] MEDS: ACCU-CHEK COMFORT CURVE STRIP VI SCH ×2 (06:20→12:35)
[2018-11-14 07:16] LABS: Basophils # (auto) 0.1 uL; Eosinophils # (auto) 0.9 uL; Eosinophils % (auto) 8.4 % (0.0-7.0); Hematocrit 28.6 % (41.0-53.0); Hemoglobin 9.5 g/dL (13.5-17.5); Lymphocytes # (auto) 2.6 uL; Lymphocytes % (auto) 24.5 % (10.0-50.0); Mean Corpuscular Hemoglobin 30.5 pg (28.0-32.0); Mean Corpuscular Hgb Conc. 33.3 g/dL (32.0-36.0); Mean Corpuscular Volume 91.5 fL (80.0-100.0); Monocytes # (auto) 1.1 uL; Monocytes % (auto) 10.6 % (0.0-12.0); Neutrophils # (auto) 5.9 uL; Neutrophils % (auto) 55.5 % (37.0-80.0); Platelet Count (auto) 299 10^3/uL (140-450); Red Blood Cells 3.12 10^6/uL (4.5-5.90); Red Cell Distribution Width 14.3 % (11.8-14.3); White Blood Cell 10.5 10^3/uL (4.4-10.8)
--- NOTE | 2018-11-14 07:30 | NUR ---
Opening Note Received report from slot shift manager RN. Patient is awake, alert and oriented x4. No signs or symptoms of distress noted at this time. Patient is on room air, respirations even and unlabored. Patient states pain 9/10 to right foot. Will medicate per orders. Reviewed plan of care with patient, patient verbalized understanding. Bed in low and locked position, call light within reach. Will continue to monitor Q1 hour and PRN.
--- NOTE | 2018-11-14 08:02 | NUR ---
Patient taken down for CT
[2018-11-14 08:18] LABS: BUN/Creatinine Ratio 20.6; Calcium 7.9 mg/dL (8.5-10.1); Phosphorus 3.7 mg/dL (2.5-4.90); Potassium 4.7 mmol/L (3.5-5.1)
--- NOTE | 2018-11-14 08:27 | NUR ---
Patient back to room
[2018-11-14 09:00] VITALS: BP 148/76
[2018-11-14] MEDS: cefTRIAXone 1GM/50ML D5W 50 ML IV SCH (09:21)
[2018-11-14] MEDS: ASPirin-EC 81 mg tab PO SCH (09:21)
[2018-11-14] MEDS: METOPROLOL TARTRATE 25 MG TAB PO SCH (09:22)
[2018-11-14] MEDS: HEPARIN SODIUM (PORCINE) 5000 UNITS/ML 1ML VIAL SC SCH (09:23)
[2018-11-14] MEDS: INSULIN LANTUS (GLARGINE) 1 /0.01ml (100units/ml) SC SCH (09:38)
[2018-11-14] MEDS: MUPIROCIN 2% OINT 15gm or 22gm TOP SCH (10:00)
--- NOTE | 2018-11-14 11:22 | NUR ---
at bedside Updating patient on plan of care. States patient is to be transferred to higher level of care.
[2018-11-14] MEDS ORDERED: ERGOCALCIFEROL 50,000 UNIT(1.25MG) CAP PO SCH (11:30)
--- NOTE | 2018-11-14 12:20 | NUR ---
Dr. Cavanaugh at bedside Updating patient on plan of care. Patient to be discharged today. Will continue to monitor
[2018-11-14] MEDS ORDERED: INSLANTI SC (12:38)
[2018-11-14] MEDS ORDERED: ASP81EC PO (12:38)
[2018-11-14] MEDS ORDERED: DOXY-216 PO (12:38)
[2018-11-14] MEDS ORDERED: MUPI2OIN2 TOP (12:38)
[2018-11-14] MEDS: DAKINS HALF STR 0.25% (NaHypochlorite) 473 ML TOPICAL SOL TOP SCH (12:38)
[2018-11-14] MEDS ORDERED: MET25T PO (12:38)
[2018-11-14] MEDS: MUPIROCIN 2% OINT 15gm or 22gm EACHNOSTRI SCH (12:38)
[2018-11-14] MEDS ORDERED: INSREGI SC (12:38)
[2018-11-14] MEDS ORDERED: ERGO1CAP23 PO (12:38)
[2018-11-14] MEDS ORDERED: ATOR20TA50 PO (12:38)
[2018-11-14 13:00] VITALS: BP 114/65
[2018-11-14 13:01] VITALS: BP 148/76
--- NOTE | 2018-11-14 14:40 | NUR ---
Discharge Discharge instructions given as ordered. Encourage to follow up with PMD as instructed. Patient instructed to follow up with higher level of care for aortic valve replacement. Patient very upset states "I am being kicked out of hospital, I dont want ot go sit in another ER." Patient refused to sign any discharge papers at this time. Patient refused discharge wound photos and MRSA swab. IV catheter removed, catheter intact, satellite project site monitor removed and sent back to ICU. Patient left in personal wheelchair with all belongings. No signs or symptoms of distress noted at this time.
--- NOTE | 2018-11-14 16:18 | NUR ---
assessment Patient is a 53 year old male who is alert and oriented. Patients cognitive abilities are intact. Prior to admission patient lived home with family and functioned with assistance. Per patient he will return home to his prior living arrangements post discharge and family will transport him home. Patient informed me his PCP is Dr Ortiz. Patient informed me he has a wheelchair for home use. Patient has MRSA in his wound. Patient may need home health wound care on discharge. Patient feels safe returning home on discharge. I informed patient he has a right to speak to a outreach and education social worker regarding all care. I informed patient he has a right to participate in any and all discharge planning. Patient does not have a POA and advanced directive. I have offered patient information on POA and advanced directives. I informed the patient the advantages and benefits of having an Advanced Directive. Patient verbalized understanding and agreed to discharge plan. Addendum: 11/14/18 at 1621 by Dolores FLEMING Amended: Links added.
[2018-11-15] MEDS ORDERED: VANCOMYCIN 1GM/250ML 250 ML IV SCH (05:00)
== END 2018-11-14 14:40 | disposition home or self-care (01) | DRG 264 ==
LOC: ER 20:39 → TELE 20:40 → TELE-WESTW 11-10 14:36
PROVIDERS: ADMIT Nurse Practitioner Acute Care; ATTEND Internal Medicine Nephrology
PROC: 0JBQ0ZZ Excision of Right Foot Subcutaneous Tissue and Fascia, Open Approach (ICD-10-PCS; principal; 2018-11-12)
PROC: 4A023N8 Measurement of Cardiac Sampling and Pressure, Bilateral, Percutaneous Approach (ICD-10-PCS; 2018-11-12)
PROC: B211YZZ Fluoroscopy of Multiple Coronary Arteries using Other Contrast (ICD-10-PCS; 2018-11-12)
PROC: B215YZZ Fluoroscopy of Left Heart using Other Contrast (ICD-10-PCS; 2018-11-12)
DX: I24.9 Acute ischemic heart disease, unspecified (principal); N17.0 Acute kidney failure with tubular necrosis; L03.113 Cellulitis of right upper limb; L03.211 Cellulitis of face; N18.4 Chronic kidney disease, stage 4 (severe); E87.1 Hypo-osmolality and hyponatremia; E87.2 Acidosis; E11.65 Type 2 diabetes mellitus with hyperglycemia; E11.22 Type 2 diabetes mellitus with diabetic chronic kidney disease; I35.2 Nonrheumatic aortic (valve) stenosis with insufficiency; I12.9 Hypertensive chronic kidney disease with stage 1 through stage 4 chronic kidney disease, or unspecified chronic kidney disease; J44.9 Chronic obstructive pulmonary disease, unspecified; E11.51 Type 2 diabetes mellitus with diabetic peripheral angiopathy without gangrene; E11.21 Type 2 diabetes mellitus with diabetic nephropathy; E55.9 Vitamin D deficiency, unspecified; E78.5 Hyperlipidemia, unspecified; R56.9 Unspecified convulsions; S91.301A Unspecified open wound, right foot, initial encounter; X58.XXXA Exposure to other specified factors, initial encounter; F17.210 Nicotine dependence, cigarettes, uncomplicated; I25.2 Old myocardial infarction; Z79.4 Long term (current) use of insulin; Z82.3 Family history of stroke; Z82.49 Family history of ischemic heart disease and other diseases of the circulatory system; Z83.3 Family history of diabetes mellitus; Z86.14 Personal history of Methicillin resistant Staphylococcus aureus infection; Z86.73 Personal history of transient ischemic attack (TIA), and cerebral infarction without residual deficits; Z89.512 Acquired absence of left leg below knee; Z90.81 Acquired absence of spleen; Z91.19 Patient's noncompliance with other medical treatment and regimen; Z89.511 Acquired absence of right leg below knee; Y93.89 Activity, other specified; Y92.89 Other specified places as the place of occurrence of the external cause; Y99.8 Other external cause status
CPT/HCPCS: 36415; 71045; 71250; 76775; 80048; 80053; 80202; 80307; 81001; 82306; 82570; 82962; 83036; 83735; 83880; 83970; 84100; 84156; 84300; 84484; 85025; 85610; 85730; 86850; 86900; 86901; 87081; 93005; 93460; 96361; 96365; 96375; C1751; G0378; J0696; J1815; J2250; J2405; J3490; Q9967

== ENCOUNTER 2019-02-03 19:04 | Emergency (ER) | payer MEDICARE, MEDICAID ==
[~2019-02-03] VITALS: Ht 185.4 cm; Wt 72.6 kg
[~2019-02-03 19:04] MED LIST changes: -AMLO5TAB15; +AMLO5TAB15 PO; +ASP81EC PO; +ATOR20TA50 PO; -ATOR40TA52; +ATOR40TA52 PO; -CEPH-37 PO; +DOXY-286 PO; +ERGO1CAP23 PO; +INSLANTI SC; +INSREGI SC; +MET25T PO; -METF-916; +MUPI2OIN2 TOP; -PANT40T
[2019-02-03 21:11] LABS: Eosinophils # (auto) 0 uL; Lymphocytes # (auto) 0.8 uL; White Blood Cell 23.3 10^3/uL (4.4-10.8)
[2019-02-03 21:13] LABS: Lactic Acid w/Reflex 2.1 mmol/L (0.4-2.0)
[2019-02-03 21:14] LABS: Basophils # (auto) 0 uL; Basophils % (auto) 0.2 % (0.0-2.0); Eosinophils % (auto) 0.2 % (0.0-7.0); Hematocrit 31.5 % (41.0-53.0); Hemoglobin 10.2 g/dL (13.5-17.5); Lymphocytes % (auto) 3.3 % (10.0-50.0); Mean Corpuscular Hemoglobin 29.4 pg (28.0-32.0); Mean Corpuscular Hgb Conc. 32.3 g/dL (32.0-36.0); Mean Corpuscular Volume 91.1 fL (80.0-100.0); Monocytes # (auto) 1.7 uL; Monocytes % (auto) 7.1 % (0.0-12.0); Neutrophils # (auto) 20.8 uL; Neutrophils % (auto) 89.2 % (37.0-80.0); Platelet Count (auto) 514 10^3/uL (140-450); Red Blood Cells 3.46 10^6/uL (4.5-5.90)
[2019-02-03 21:26] LABS: Calcium 8.3 mg/dL (8.5-10.1); Potassium 3.8 mmol/L (3.5-5.1)
[2019-02-03 21:28] LABS: Bilirubin, Total 0.2 mg/dL (0.2-1.0); Total Protein 6.9 g/dL (6.4-8.2)
[2019-02-03 21:57] LABS: BUN/Creatinine Ratio 7.8
[2019-02-03 21:58] LABS: Albumin 1.5 g/dL (3.4-5.0)
[2019-02-03] MEDS ORDERED: SODIUM CHLORIDE 0.9% 1,000 ML IV ONE ×2 (22:00→22:15)
[2019-02-03] MEDS ORDERED: PIPERACILLIN-TAZOB 3.375GM 100 ML IV ONE (22:00)
[2019-02-03] MEDS ORDERED: VANCOMYCIN PER PHARMACY 0 MG IV SCH (22:00)
[2019-02-03] MEDS ORDERED: InsuLIN REG 1unit/0.01ml Soln (100units/ml) IV ONE (22:15)
[2019-02-03] MEDS ORDERED: VANCOMYCIN 1GM/250ML 250 ML IV ONE (22:15)
[2019-02-03] MEDS ORDERED: MORPHINE SULFATE 4 MG/ML SYR/VIAL IV ONE (22:45)
[2019-02-03] MEDS ORDERED: ONDANSETRON HCL 4 MG/2 ML VIAL IV ONE (22:45)
[2019-02-04] MEDS ORDERED: SODIUM CHL 3% 500 ML IV ONE
[2019-02-04 01:27] VITALS: BP 121/60
[2019-02-04] MEDS ORDERED: ACETAMINOPHEN 325 MG TAB PO ONE (01:30)
== END 2019-02-03 23:31 | disposition short-term general hospital (02) ==
LOC: ER 19:04
DX: A41.9 Sepsis, unspecified organism (principal); M72.6 Necrotizing fasciitis; E11.65 Type 2 diabetes mellitus with hyperglycemia; E87.1 Hypo-osmolality and hyponatremia; F19.10 Other psychoactive substance abuse, uncomplicated; F17.210 Nicotine dependence, cigarettes, uncomplicated; F12.10 Cannabis abuse, uncomplicated; F15.10 Other stimulant abuse, uncomplicated; E11.22 Type 2 diabetes mellitus with diabetic chronic kidney disease; I13.0 Hypertensive heart and chronic kidney disease with heart failure and stage 1 through stage 4 chronic kidney disease, or unspecified chronic kidney disease; N18.9 Chronic kidney disease, unspecified; I50.9 Heart failure, unspecified; J44.9 Chronic obstructive pulmonary disease, unspecified; E78.5 Hyperlipidemia, unspecified; I25.2 Old myocardial infarction; Z86.73 Personal history of transient ischemic attack (TIA), and cerebral infarction without residual deficits; Z79.899 Other long term (current) drug therapy
CPT/HCPCS: 36415; 36600; 73700; 80053; 82010; 82805; 82962; 83605; 83880; 85025; 87040; 96365; 96375; 99291; J1815; J2270; J2405; J2543; J7030; 96367

== ENCOUNTER 2019-08-19 11:02 | Emergency (ER) | payer MEDICARE, MEDICAID ==
[~2019-08-19] VITALS: Ht 185.4 cm; Wt 77.1 kg
[~2019-08-19 11:02] MED LIST changes: -ASP81EC PO; +ASPI-394 PO
[2019-08-19] MEDS ORDERED: KETOROLAC TROMETH 30 MG/ML 1ML VIAL IV ONE (11:15)
[2019-08-19 11:20] VITALS: BP 144/75
[2019-08-19] MEDS ORDERED: KETOROLAC TROMETH 60MG/2ML VIAL IM ONE (12:15)
== END 2019-08-19 13:33 | disposition home or self-care (01) ==
LOC: ER 11:02 → EDBD 11:02 → ER 13:33
DX: M25.512 Pain in left shoulder (principal); F17.210 Nicotine dependence, cigarettes, uncomplicated; F12.10 Cannabis abuse, uncomplicated; F15.10 Other stimulant abuse, uncomplicated; E11.22 Type 2 diabetes mellitus with diabetic chronic kidney disease; I13.0 Hypertensive heart and chronic kidney disease with heart failure and stage 1 through stage 4 chronic kidney disease, or unspecified chronic kidney disease; N18.9 Chronic kidney disease, unspecified; I50.9 Heart failure, unspecified; E78.5 Hyperlipidemia, unspecified; Z86.73 Personal history of transient ischemic attack (TIA), and cerebral infarction without residual deficits
CPT/HCPCS: 73200; 96372; 99284; J1885